=== PATIENT | female | born 1960 | race Caucasian/White ===

== ENCOUNTER 2023-02-18 18:03 | Emergency (ER) | payer OTHER ==
[~2023-02-18] VITALS: Ht 149.9 cm; Wt 74.8 kg
[2023-02-18 18:57] VITALS: BP 94/63; TEMP 98.2; O2SAT 96
== END 2023-02-18 18:58 | disposition home or self-care (01) ==
LOC: ER 18:39
DX: S13.4XXA Sprain of ligaments of cervical spine, initial encounter (principal); V89.2XXA Person injured in unspecified motor-vehicle accident, traffic, initial encounter; Y93.89 Activity, other specified; Y92.89 Other specified places as the place of occurrence of the external cause; Y99.8 Other external cause status